=== PATIENT | female | born 1970 | race American Indian/Alaskan Native ===

== ENCOUNTER 2017-12-30 11:56 | Emergency (ER) | payer BC ==
[2017-12-30] MEDS ORDERED: DiphenhydrAMINE 12.5 mg/5 ml LIQ UD (5 ml) PO STA (12:37)
--- NOTE | 2017-12-30 12:41 | ED PDOC ---
Arrival/HPI - General Chief Complaint: Cough, Cold, Congestion Time Seen by Provider: 12/30/17 12:36 Historian: Patient - History of Present Illness Narrative History of Present Illness (Text): 12/30/17 12:37 pt p/w + 3 days onset of sob/wheezing, subjective fever, + runny nose with mucousy discharge and profuse dry coughing; pt states she had seen her doctor the last day and was prescribed abx (Z-frantz); pt states her breathing remains difficult today and felt chest tightness today as well and decided to come to ED for further eval; pt states no chills, + sweating, no palpitations, no abd pain, no n/v, no numbness/tingling, no drooling/stridor, no urinary/bowel changes, no fall/trauma/sick contact, no travel. pt is here for further eval. pt's without other complaints. PCP: Dr [place] Time/Duration: < week (3 days) Symptom Onset: Sudden Symptom Course: Unchanged Severity Level: 6, 8, Severe Activities at Onset: Rest Context: Home Past Medical History - Provider Review Nursing Documentation Reviewed: Yes - Travel History Have you recently traveled outside [place] w/in the past 3 mons?: No - Past History Past History: No Previous - Infectious Disease Hx of Infectious Diseases: None - Tetanus Immunization Tetanus Immunization: Unknown - Reproductive Menopause: No Currently : Unknown - Cardiac Hx Cardiac Disorders: Yes Hx Hypertension: Yes - Pulmonary Hx Respiratory Disorders: Yes Hx Asthma: Yes - Neurological Hx Neurological Disorder: No - HEENT Hx HEENT Disorder: No - Renal Hx Renal Disorder: No - Endocrine/Metabolic Hx Endocrine Disorders: No - Hematological/Oncological Hx Blood Disorders: No - Integumentary Hx Dermatological Disorder: Yes Hx Eczema: Yes - Musculoskeletal/Rheumatological Hx Musculoskeletal Disorders: No - Gastrointestinal Hx Gastrointestinal Disorders: No - Genitourinary/Gynecological Hx Genitourinary Disorders: No - Psychiatric Hx Psychophysiologic Disorder: No Hx Substance Use: No - Surgical History Other/Comment: CYST REMOVED Family/Social History - Physician Review Nursing Documentation Reviewed: Yes Family/Social History: No Known Family HX Smoking Status: Never Smoked Hx Alcohol Use: No Frequency of alcohol use: Socially Hx Substance Use: No Allergies/Home Meds Allergies/Adverse Reactions: Allergies No Known Allergies Allergy (Verified 12/30/17 12:12) Home Medications: Home Meds Medication Instructions Recorded Confirmed Azithromycin [Zithromax] 1 tab PO DAILY 12/30/17 12/30/17 Diltiazem HCl [Matzim LA] 1 tab PO DAILY 12/30/17 12/30/17 Montelukast [Singulair] 10 mg PO DAILY 12/30/17 12/30/17 Nebivolol [Bystolic] 20 mg PO DAILY 12/30/17 12/30/17 predniSONE [Prednisone] 20 mg PO DAILY 12/30/17 12/30/17 Review of Systems - Review of Systems Constitutional: Normal Eyes: Normal ENT: Rhinorrhea. absent: Sore Throat Respiratory: Cough, Sputum, Wheezing Cardiovascular: Chest Pain Gastrointestinal: Normal Genitourinary Female: Normal Musculoskeletal: Normal Skin: Normal Neurological: Normal Endocrine: Normal Hemo/Lymphatic: Normal Physical Exam Vital Signs Reviewed: Yes Vital Signs Temp Pulse Resp BP Pulse Ox 12/30/17 12:15 98.8 F 67 17 150/76 97 Temperature: Afebrile Blood Pressure: Normal Pulse: Regular Respiratory Rate: Normal Appearance: Positive for: Well-Appearing, Non-Toxic, Uncomfortable, Other (alert /awake, resting in bed, uncomfortable, NAD, GCS = 15, oriented x 3; cooperative) Pain Distress: None Mental Status: Positive for: Alert and Oriented X 3 - Systems Exam Head: Present: Atraumatic, Normocephalic Pupils: Present: PERRL, Other (no nystagmus, no photophobia, sclera anicteric) Extroacular Muscles: Present: EOMI Conjunctiva: Present: Normal Ears: Present: Normal Mouth: Present: Moist Mucous Membranes, Normal Teeth, Other (no drooling/stridor , no exudate/lesions, uvula/tongue are midline, intact dentitions) Pharnyx: Present: Normal Nose (External): Present: Atraumatic Nose (Internal): Present: Normal Inspection Neck: Present: Normal Range of Motion, Trachea Midline, Other (no nuchal rigidity, intact ROM, no midline tenderness). No: Meningeal Signs, MIDLINE TENDERNESS, Paraspinal Tenderness Respiratory/Chest: Present: Wheezes, Decreased Breath Sounds, Other (+ mild b/l decr air breat sounds, + right lower base wheezing, no rales/rhonchi, no tachypenia, no accessory muscle use noted). No: Respiratory Distress, Accessory Muscle Use, Retracting Cardiovascular: Present: Regular Rate and Rhythm, Normal S1, S2. No: Murmurs Abdomen: Present: Normal Bowel Sounds, Other (well nourished/obese female, no focal tenderness, no masses/rebound/guarding/rigidity; no santillan's sign, no mcburney's point tenderness). No: Tenderness Back: Present: Normal Inspection. No: CVA Tenderness, Midline Tenderness, Paraspinal Tenderness Upper Extremity: Present: Normal Inspection, Normal ROM, NORMAL PULSES, Neurovascularly Intact Lower Extremity: Present: Normal Inspection, NORMAL PULSES, Normal ROM, Neurovascularly Intact. No: Angelita's Sign, Deformity Neurological: Present: GCS=15, CN II-XII Intact, Speech Normal Skin: Present: Warm, Normal Color, Other (cap refill < 1sec, no ulcerations, no petechiae, no lesions/rashes) Psychiatric: Present: Alert, Oriented x 3 Medical Decision Making ED Course and Treatment: 12/30/17 12:42 Impression: SOB, coughing, subjective fever i have consider all the differential diagnosis regarding pt's chief medical complaints/clinical findings, including but are not limited to: sob/coughing/ wheezing/subjective fever A/P: sob/coughing/fever - treatment - steroids - supportive care - observe/reevaluation 12/30/17 14:44 pt felt improved pt states no chest pain/pressure [id number]: + improved aeration, + faint right basiliar wheezing is noted, but improved compare with prior; no tachypenia, no accessory muscle use noted pt is doing well pt tolerated po well pt is made aware of her medical results pt is encouraged 1 tsp of honey every 8 hours for cough control pt is encouraged closing her windows especially at night pt is encouraged anti-histamines as needed pt will f/u as directed pt will be discharged home Re-evaluation Time: 14:30 Reassessment Condition: Improved - EKG Interpretation EKG Interpretation (Text): 12/30/17 14:30 NSR at 70bpm, LAD, no ectopy, poor R-wave progression, no st changes, ABNL EKG; no OLD ekg to compare with Interpreted by ED Physician: Yes Type: 12 lead EKG Comparison: No previous EKG avail. - Medication Orders Current Medication Orders: Discontinued Medications Albuterol/Ipratropium (Duoneb 3 Mg/0.5 Mg (3 Ml) Ud) 3 ml IH Q15M ANA Stop: 12/30/17 13:16 Last Admin: 12/30/17 14:18 Dose: 3 ml Diphenhydramine HCl (Benadryl) 25 mg PO STAT STA Stop: 12/30/17 12:38 Last Admin: 12/30/17 13:49 Dose: 25 mg Prednisone (Prednisone Tab) 60 mg PO STAT ONE Stop: 12/30/17 12:38 Last Admin: 12/30/17 13:50 Dose: 60 mg Disposition/Present on Arrival - Present on Arrival Any Indicators Present on Arrival: No History of DVT/PE: No History of Uncontrolled Diabetes: No Urinary Catheter: No History of Decub. Ulcer: No History Surgical Site Infection Following: None - Disposition Have Diagnosis and Disposition been Completed?: Yes Diagnosis: Asthma exacerbation attacks, Allergic bronchitis without complication Disposition: HOME/ ROUTINE Disposition Time: 14:34 Patient Plan: Discharge Patient Problems: Current Active Problems Problem Status Onset Allergic bronchitis without complication Acute Asthma exacerbation attacks Acute Condition: STABLE Discharge Instructions (ExitCare): Asthma in Adults, Seasonal Allergies in Adults Print Language: OMANI Additional Instructions: Make sure to see your doctor in 1-2 days DRINK PLENTY OF FLUIDS take your medications as prescribed use your inhaler/nebulizer every 4 hours over the next 1-2 days even if your not short of breath/wheezing try 1 teaspoon of honey every 8hours for cough control close your windows during the night to prevent dust/pollens entering your home RETURN TO ED IF worse pain, cant breath, persistent vomiting, high fever >101- 102 for hours, altered behavior, slurr speech, facial changes, focal weakness ( arm/leg or both), unable to urinate, heavy/persistent bleeding, passing out, chest pain, or other medical emergencies Prescriptions: guaiFENesin/Dextromethorphan [Robitussin DM] 10 ml PO QID PRN #100 ml PRN Reason: Cough Prednisone 50 mg PO DAILY #4 tab Referrals: Tres [place] [Family Provider] - Follow up with primary Forms: [facility] ([place]), WORK NOTE
[2017-12-30] MEDS: Albuterol-Ipratrop 3 mg / 0.5 (3 ml) UD IH SCH ×3 (13:50→14:52)
[2017-12-30 14:56] VITALS: BP 140/72; RESP 20; TEMP 98
[2017-12-30 14:57] VITALS: PULSE 70; O2SAT 99
--- NOTE | 2017-12-30 18:48 | CARD ---
APPROVED REPORT EKG Measurement Heart [id number] <Conclusion> Poor data quality, interpretation may be adversely affected Normal sinus rhythm Left anterior fascicular block Minimal voltage criteria for LVH, may be normal variant Abnormal ECG
== END 2017-12-30 14:56 | disposition home or self-care (01) ==
LOC: ED 11:56 → MERGE 11:56 → ED 14:56
DX: J45.901 Unspecified asthma with (acute) exacerbation (principal); I10 Essential (primary) hypertension